=== PATIENT | female | born 1975 | race African-American/Black ===

== ENCOUNTER 2017-12-01 16:07 | Emergency (ER) | payer MEDICAID ==
[~2017-12-01] VITALS: Ht 167.6 cm; Wt 70.0 kg
[2017-12-01 16:15] VITALS: BP 110/64
== END 2017-12-01 19:30 | disposition left against medical advice (07) ==
LOC: ER 16:07
DX: Z53.21 Procedure and treatment not carried out due to patient leaving prior to being seen by health care provider (principal)

== ENCOUNTER 2018-02-03 03:57 | Emergency (ER) | payer MEDICAID ==
[~2018-02-03] VITALS: Ht 160 cm; Wt 96.0 kg
[2018-02-03 04:47] VITALS: BP 127/80
== END 2018-02-03 06:54 | disposition home or self-care (01) ==
LOC: ER 03:57
DX: J30.2 Other seasonal allergic rhinitis (principal); R20.2 Paresthesia of skin; I25.2 Old myocardial infarction; F17.200 Nicotine dependence, unspecified, uncomplicated; M79.672 Pain in left foot; M79.671 Pain in right foot; J02.9 Acute pharyngitis, unspecified; Z98.890 Other specified postprocedural states
CPT/HCPCS: 82962; 99282

== ENCOUNTER 2018-04-29 12:56 | Emergency (ER) | payer MEDICAID ==
[~2018-04-29] VITALS: Ht 160 cm; Wt 91.0 kg
[2018-04-29 13:13] VITALS: BP 138/83
== END 2018-04-29 14:36 | disposition home or self-care (01) ==
LOC: ER 12:56
DX: B34.9 Viral infection, unspecified (principal); F17.200 Nicotine dependence, unspecified, uncomplicated; R03.0 Elevated blood-pressure reading, without diagnosis of hypertension; Z98.890 Other specified postprocedural states
CPT/HCPCS: 99283

== ENCOUNTER 2018-05-22 19:51 | Emergency (ER) | payer MEDICAID ==
[~2018-05-22] VITALS: Ht 160 cm; Wt 91.0 kg
[2018-05-22 21:23] LABS: CLARITY URINE CLEAR (CLEAR); COLOR URINE YELLOW (YELLOW); KETONES URINE TRACE (NEGATIVE); LEUKOCYTE ESTERASE URINE 2+ (NEGATIVE); NITRITE URINE NEGATIVE (NEGATIVE); OCCULT BLOOD URINE 3+ (NEGATIVE); PROTEIN URINE NEGATIVE (NEGATIVE); SPECIFIC GRAVITY URINE 1.026 (1.005-1.030)
[2018-05-23] MEDS ORDERED: IBUPROFEN 600MG TABLET PO STA (01:50)
[2018-05-23 03:15] LABS: CHLORIDE 107 mEq/L (98-107)
[2018-05-23 03:17] LABS: BASOPHILS % 1.1 % (0.0-2.0); EOSINOPHILS % 1.6 % (0.0-5.0); HEMOGLOBIN. 12.4 g/dL (12.0-16.0); LYMPHOCYTES % 44.9 % (20.0-50.0); MEAN CORPUSCULAR HEMOGLOBIN 30.5 pg (28.0-32.0); MEAN CORPUSCULAR VOLUME 91.4 fL (81.0-99.0); MONOCYTES % 12.2 % (2.0-8.0); NEUTROPHILS % 40.2 % (40.0-76.0); PLATELET 364 x1000/uL (130-400); RED BLOOD CELL COUNT 4.05 mill/uL (4.2-5.4); RED CELL DISTRIBUTION WIDTH 12.9 % (11.6-14.6)
[2018-05-23 04:37] VITALS: BP 146/78
== END 2018-05-23 04:38 | disposition home or self-care (01) ==
LOC: ER 19:51
DX: J01.90 Acute sinusitis, unspecified (principal); N39.0 Urinary tract infection, site not specified; R05 Cough; I25.2 Old myocardial infarction; F17.210 Nicotine dependence, cigarettes, uncomplicated; Z98.890 Other specified postprocedural states
CPT/HCPCS: 36415; 71045; 80048; 81025; 87070; 87430; 87804; 99284

== ENCOUNTER 2018-10-07 18:31 | Emergency (ER) | payer MEDICAID ==
[~2018-10-07] VITALS: Ht 160 cm; Wt 95.0 kg
[2018-10-07] MEDS ORDERED: IBUPROFEN 600MG TABLET PO ONE (22:00)
[2018-10-07 22:43] LABS: CLARITY URINE CLOUDY (CLEAR); COLOR URINE YELLOW (YELLOW); KETONES URINE NEGATIVE (NEGATIVE); LEUKOCYTE ESTERASE URINE TRACE (NEGATIVE); NITRITE URINE NEGATIVE (NEGATIVE); OCCULT BLOOD URINE NEGATIVE (NEGATIVE); PROTEIN URINE NEGATIVE (NEGATIVE); SPECIFIC GRAVITY URINE 1.012 (1.005-1.030); UROBILINOGEN URINE 0.2 E.U./dL (0.2-1.0)
[2018-10-07] MEDS ORDERED: KETOROLAC 60MG/2ML VIAL IM ONE (23:15)
[2018-10-07 23:35] VITALS: BP 142/94
== END 2018-10-07 23:43 | disposition home or self-care (01) ==
LOC: ER 18:31
DX: N30.00 Acute cystitis without hematuria (principal); B34.9 Viral infection, unspecified; I25.2 Old myocardial infarction; Z98.890 Other specified postprocedural states
CPT/HCPCS: 81003; 96372; 99283; J1885; Z7610

== ENCOUNTER 2018-10-11 00:57 | Emergency (ER) | payer MEDICAID ==
[~2018-10-11] VITALS: Ht 160 cm; Wt 94.0 kg
[2018-10-11] MEDS ORDERED: VISCOUS LIDOCAINE 2% 15 ML UDC MM PRN (06:45)
[2018-10-11] MEDS ORDERED: IBUPROFEN 600MG TABLET PO ONE (06:45)
[2018-10-11 07:09] VITALS: BP 119/74
== END 2018-10-11 07:12 | disposition home or self-care (01) ==
LOC: ER 00:57
DX: J06.9 Acute upper respiratory infection, unspecified (principal); F17.200 Nicotine dependence, unspecified, uncomplicated; F12.10 Cannabis abuse, uncomplicated; Z98.890 Other specified postprocedural states
CPT/HCPCS: 99282

== ENCOUNTER 2019-03-07 18:58 | Emergency (ER) | payer MEDICAID ==
[~2019-03-07] VITALS: Ht 162.6 cm; Wt 88.0 kg
[2019-03-07 20:54] LABS: CLARITY URINE CLEAR (CLEAR); COLOR URINE YELLOW (YELLOW); KETONES URINE NEGATIVE (NEGATIVE); LEUKOCYTE ESTERASE URINE 3+ (NEGATIVE); NITRITE URINE NEGATIVE (NEGATIVE); OCCULT BLOOD URINE NEGATIVE (NEGATIVE); PROTEIN URINE NEGATIVE (NEGATIVE); UROBILINOGEN URINE 0.2 E.U./dL (0.2-1.0)
[2019-03-07] MEDS ORDERED: KETOROLAC 60MG/2ML VIAL IM ONE (21:30)
[2019-03-07] MEDS ORDERED: TRAMADOL 50MG TABLET PO ONE (21:30)
[2019-03-07 22:30] VITALS: BP 119/64
== END 2019-03-07 22:31 | disposition home or self-care (01) ==
LOC: ER 20:29
DX: M62.830 Muscle spasm of back (principal); N39.0 Urinary tract infection, site not specified; M25.512 Pain in left shoulder; F12.10 Cannabis abuse, uncomplicated; F17.200 Nicotine dependence, unspecified, uncomplicated; Z98.890 Other specified postprocedural states
CPT/HCPCS: 73030; 81003; 96372; 99284; J1885

== ENCOUNTER 2019-03-14 19:14 | Emergency (ER) | payer MEDICAID ==
[~2019-03-14] VITALS: Ht 162.6 cm; Wt 86.0 kg
[2019-03-14] MEDS ORDERED: IBUPROFEN 600MG TABLET PO STA (21:13)
[2019-03-15 00:42] VITALS: BP 154/82
== END 2019-03-15 00:43 | disposition home or self-care (01) ==
LOC: ER 19:14
DX: R05 Cough (principal); M25.512 Pain in left shoulder; M19.90 Unspecified osteoarthritis, unspecified site; I25.2 Old myocardial infarction; F12.10 Cannabis abuse, uncomplicated; F17.210 Nicotine dependence, cigarettes, uncomplicated; Z98.51 Tubal ligation status; Z71.6 Tobacco abuse counseling
CPT/HCPCS: 71045; 99283

== ENCOUNTER 2019-03-15 01:11 | Emergency (ER) | payer MEDICAID ==
[~2019-03-15] VITALS: Ht 154.9 cm; Wt 87.0 kg
[2019-03-15] MEDS ORDERED: IBUPROFEN 600MG TABLET PO ONE (05:30)
[2019-03-15 08:02] VITALS: BP 122/78
== END 2019-03-15 11:09 | disposition home or self-care (01) ==
LOC: ER 01:36
DX: Z04.89 Encounter for examination and observation for other specified reasons (principal); M19.90 Unspecified osteoarthritis, unspecified site; I25.2 Old myocardial infarction; F12.10 Cannabis abuse, uncomplicated; Z59.0 Homelessness
CPT/HCPCS: 99283